=== PATIENT | male | born 1960 | race Caucasian/White ===

== ENCOUNTER 2018-11-23 10:40 | Day surgery (SDC) | payer OTHER ==
[2018-11-22] MEDS: SOD CHLORIDE 0.9% 1,000 ML IV (12:30)
[~2018-11-23 10:40] MED LIST: CEFAZOLIN 1 GM INJ; CEFAZOLIN 2 GM/50 ML (PMX) 50 ML IVPB; SEVOFLURANE 15 MIN
[2018-11-23] MEDS ORDERED: BUPIVACAINE 0.5%/EPI (SDV) 30 ML INJ (11:32)
[2018-11-23] MEDS ORDERED: MEPERIDINE 25 MG INJ IV (12:30)
[2018-11-23] MEDS ORDERED: OXYCODONE/ACETAMINOPHEN (5/325) TAB PO ×3 (12:30→16:00)
[2018-11-23] MEDS ORDERED: LABETALOL HCL 20MG INJ IV (12:30)
[2018-11-23] MEDS ORDERED: HYDROmorphONE 1 MG/5 ML IV SYRINGE IV ×3 (12:30)
[2018-11-23] MEDS ORDERED: FENTAnyl 50 MCG/ML VIAL IV (12:30)
[2018-11-23] MEDS ORDERED: DIPHENHYDRAMINE 50 MG INJ IV (12:30)
[2018-11-23] MEDS ORDERED: ONDANSETRON 4 MG INJ IV ×2 (12:30→16:00)
[2018-11-23] MEDS ORDERED: hydrALAzine 20 MG INJ IV (12:30)
[2018-11-23] MEDS ORDERED: PROCHLORPERAZINE 10 MG INJ IV (12:30)
[2018-11-23] MEDS ORDERED: MIDAZOLAM 1 MG/ML 2 ML INJ (12:43)
[2018-11-23] MEDS ORDERED: FENTAnyl 50 MCG/ML VIAL ×2 (12:43→15:32)
[2018-11-23] MEDS ORDERED: ROPIVACAINE 0.5 % 30 ML VIAL (12:45)
[2018-11-23] MEDS ORDERED: PROPOFOL 20 ML (12:47)
[2018-11-23] MEDS ORDERED: ROCURONIUM 50 MG INJ (12:47)
[2018-11-23] MEDS ORDERED: LIDOCAINE 2% (SDV) 5 ML INJ (12:47)
[2018-11-23] MEDS ORDERED: SUCCINYLCHOLINE CHLORIDE 100 MG/5 ML SYG IV (12:47)
[2018-11-23] MEDS ORDERED: ONDANSETRON 4 MG INJ (13:16)
[2018-11-23] MEDS ORDERED: DEXAMETHASONE 4 MG/ML 5 ML INJ (13:16)
[2018-11-23] MEDS ORDERED: FAMOTIDINE 20 MG INJ (13:16)
[2018-11-23] MEDS: POLYMYXIN/BACITRACIN 1L IRRIG IRR ×2 (13:28→15:53)
[2018-11-23] MEDS ORDERED: POLYMYXIN/BACITRACIN 1L IRRIG (14:14)
[2018-11-23] MEDS ORDERED: GLYCOPYRROLATE 0.4 MG INJ (15:28)
[2018-11-23] MEDS ORDERED: NEOSTIGMINE 3 MG/3 ML SYRINGE (15:28)
[2018-11-23] MEDS: BUPIVACAINE 0.25% (MPF) 30 ML INJ (15:53)
[2018-11-23] MEDS ORDERED: morphine 2 MG INJ IV (16:00)
== END 2018-11-23 17:28 | disposition home or self-care (01) ==
LOC: SDS 10:40
DX: K40.91 Unilateral inguinal hernia, without obstruction or gangrene, recurrent (principal); E78.5 Hyperlipidemia, unspecified
CPT/HCPCS: 49520; 88302; 88304